=== PATIENT | female | born 1990 | race Hispanic/Latino ===

== ENCOUNTER 2017-03-13 10:30 | Emergency (ER) | payer MEDICAID ==
[~2017-03-13 10:30] MED LIST: Iopamidol 370 76% 100 ML VIAL ONE; Sodium Chloride 0.9% 1,000 ML BAG ONE
[2017-03-13] MEDS ORDERED: Ondansetron HCl/PF 4 MG/2 ML Vial ONE (11:27)
[2017-03-13] MEDS ORDERED: Ketorolac Tromethamine 30 MG/ML VIAL ONE (11:27)
[2017-03-13 11:45] LABS: #Lymphocytes 0.3 thou/uL (1.20-3.40); #Monocytes 0.4 thou/uL (0.11-0.59); #Neutrophils 4.6 thou/uL (1.40-6.50); %Basophils 0.7 % (0.0-1.0); %Eosinophils 0.1 % (0.0-10.0); %Lymphocytes 5.7 % (21.0-51.0); %Monocytes 6.6 % (0.0-10.0); %Neutrophils 86.8 % (42.0-75.0); Hemoglobin 12.6 g/dL (12.0-16.0); Mean Corpuscular HGB CONC 33.6 g/dL (32.0-36.0); Mean Corpuscular Hemoglobin 28.9 pg (27.0-31.0); Mean Platelet Volume 9.1 fL (7.4-10.4); Platelet Count 177 thou/uL (130-400); RBC Distribution Width 11.6 % (11.5-14.5); Red Blood Cell (RBC) Count 4.38 mill/uL (4.20-5.40); White Blood Cell (WBC) Count 5.3 thou/uL (4.8-10.8)
[2017-03-13 11:50] LABS: Bilirubin Small (Negative); Blood, Urine Negative (Negative); Clarity Clear (Clear); Glucose, Urine (Dipstick) Negative (Negative); Leukocyte Trace (Negative); Nitrite Negative (Negative); Protein, Urine (Dipstick) 30 mg/dL (Neg-Trace); RBC/HPF 0-3 HPF (0-3); Specific Gravity, Urine 1.025 (1.005-1.030); pH, Urine 5.5 (5.0-9.0)
[2017-03-13 11:51] LABS: Bacteria/HPF 1+ HPF (None Seen)
[2017-03-13 11:51] LABS: Pregnancy Test - Urine (BHCG) Negative (Negative); Pregu Control Background? CLEAR/WHITE (CLR/WHITE); Pregu Control Bar Appear? YES (CONTROL BAR); Specific Gravity 1.025 (1.002-1.036)
[2017-03-13 12:01] LABS: Anion Gap 15 mmol/L (10-20); BUN (Urea Nitrogen) 7 mg/dL (7.0-18.7); Calc. Creatinine Clearance 0 mL/min (70-130); Carbon Dioxide 23 mmol/L (22-29); Chloride 104 mmol/L (98-107); Estimated GFR-MDRD Greater than 90; Glucose 110 mg/dL (70-105); Lipase 5 U/L (8-78); Potassium 3.4 mmol/L (3.5-5.1); Sodium 139 mmol/L (136-145)
[2017-03-13] MEDS ORDERED: hydrOXYzine 25 MG TAB ONE (12:05)
[2017-03-13] MEDS ORDERED: Acetaminophen 325 MG TAB ONE (12:05)
[2017-03-13] MEDS ORDERED: Metoclopramide HCl 10 MG/2 ML VIAL ONE (13:13)
[2017-03-13] MEDS ORDERED: diphenhydrAMINE 50 MG/ML VIAL ONE (13:13)
--- NOTE | 2017-03-13 15:04 | CT ---
CT ABDOMEN AND PELVIS WITH ORAL AND IV CONTRAST: Date: 03/13/17 HISTORY: Suprapubic pain, nausea and vomiting. FINDINGS: The lung bases are clear. There is incomplete visualization of a 2.7 cm right breast mass. The liver, spleen, pancreas, and adrenal glands are normal. No calcified gallstones are seen. A punctate calcul us is seen in the left kidney. Prominent extrarenal pelves are noted bilaterally, right larger than l eft. No renal mass is seen. No free air, free fluid, or lymphadenopathy seen in the abdomen or pelvis. The small bowel loops are not abnormally dilated. A normal appearing appendix is present. Uterus and ovaries are present. No ac false pass osseous abnormalities are identified. IMPRESSION: 1. No CT evidence of acute process. 2. Punctate nonobstructing left renal calculus. 3. Right breast mass. This should be evaluated with an ultrasound. POS: [facility]
== END 2017-03-13 15:30 | disposition home or self-care (01) ==
LOC: MADERS 10:30
DX: J11.1 Influenza due to unidentified influenza virus with other respiratory manifestations (principal); R11.2 Nausea with vomiting, unspecified; R10.32 Left lower quadrant pain; F17.210 Nicotine dependence, cigarettes, uncomplicated
CPT/HCPCS: 74177; 80048; 81003; 81015; 81025; 83690; 85025; 87086; 96361; 96374; 96375; J1200; J1885; J2405; J2765; J7050

== ENCOUNTER 2017-05-05 00:54 | Emergency (ER) | payer MEDICAID, SELFPAY ==
[2017-05-05] MEDS ORDERED: traMADol HCl 50 MG TAB ONE (01:12)
[2017-05-05] MEDS ORDERED: Ibuprofen 800 MG TAB ONE (01:13)
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
== END 2017-05-05 02:05 | disposition home or self-care (01) ==
LOC: MADERS 00:54
DX: T74.11XA Adult physical abuse, confirmed, initial encounter (principal); S06.0X9A Concussion with loss of consciousness of unspecified duration, initial encounter; F17.210 Nicotine dependence, cigarettes, uncomplicated; Z98.51 Tubal ligation status; Z79.899 Other long term (current) drug therapy; Y07.03 Male partner, perpetrator of maltreatment and neglect; Y04.2XXA Assault by strike against or bumped into by another person, initial encounter
CPT/HCPCS: 70450